=== PATIENT | female | born 1985 | race Caucasian/White ===

== ENCOUNTER 2018-05-24 19:38 | Emergency (ER) | payer SELFPAY ==
[~2018-05-24] VITALS: Ht 162.6 cm; Wt 104.3 kg
--- NOTE | 2018-05-24 19:41 | ED.ADGEN ---
Past History Past Surgical History: Other Past Surgical History Rt. foot, ankle and tib/fib. Adult General Chief Complaint Chief Complaint ".. I hurt my Rt. ankle... I twisted it about 2 weeks ago... and been thinking it may get better.. but it still hurts to walk.. it the same one I had surgical repair on 2 yrs ago... HPI HPI Patient is a 33 year old female who presents with above hx and complaints of edema and pain in right ankle and foot. Patient had extensive reconstructive surgery for multiple fractures of ankle and tibia 2 years ago. Distal neurovascular intact. Does have some mild swelling. Multiple scars. Patient has been ambulatory last 2 weeks. No history of fevers. No history of DVTs. No history of section and right leg. Patient recently moved into the area has not established primary care. Review of Systems Review of Systems Constitutional: Denies fever or chills [] Eyes: Denies change in visual acuity, redness, or eye pain [] HENT: Denies nasal congestion or sore throat [] Respiratory: Denies cough or shortness of breath [] Cardiovascular: No additional information not addressed in HPI [] GI: Denies abdominal pain, nausea, vomiting, bloody stools or diarrhea [] : Denies dysuria or hematuria [] Musculoskeletal: Denies back pain or joint pain []complaints of pain in right foot ankle and leg Integument: Denies rash or skin lesions [] Neurologic: Denies headache, focal weakness or sensory changes [] Endocrine: Denies polyuria or polydipsia [] All other systems were reviewed and found to be within normal limits, except as documented in this note. Family History Family History Noncontributory Current Medications Current Medications Current Medications Medications (Trade) Dose Ordered Sig/Jocelyn Start Time Stop Time Status Last Admin Dose Admin Hydrocodone Bitartrate/ Ibuprofen (Vicoprofen 7.5-200) 2 tab 1X ONCE 05/24/18 20:15 05/24/18 20:16 DC 05/24/18 21:10 2 TAB Allergies Allergies Allergies Coded Allergies Type Severity Reaction Last Updated Verified No Known Drug Allergies 05/24/18 No Physical Exam Physical Exam Constitutional: Mild to moderate distress, non-toxic appearance. [] HENT: Normocephalic, atraumatic, bilateral external ears normal, oropharynx moist, no oral exudates, nose normal. [] Eyes: PERRLA, EOMI, conjunctiva normal, no discharge. [] Neck: Normal range of motion, no tenderness, supple, no stridor. [] Cardiovascular:Heart rate regular rhythm, no murmur [] Lungs & Thorax: Bilateral breath sounds equal with scattered wheezes auscultation [] Abdomen: Bowel sounds normal, soft, no tenderness, no masses, no pulsatile masses. Scars Skin: Warm, dry, no erythema, no rash. [] Back: No tenderness, no CVA tenderness. [] Extremities: No tenderness, no cyanosis, no clubbing, ROM intact, no edema. [] Except Right foot, ankle and lower leg pain. Old surgical scars. No cording appreciated. Does have crepitation with range motion and foot squeeze. Refill is equal to left foot. Neurologic: Alert and oriented X 3, normal motor function, normal sensory function, no focal deficits noted. [] Psychologic: Affect anxious, judgement normal, mood normal. [] Current Patient Data Vital Signs Vital Signs Date Time Temp Pulse Resp B/P (MAP) Pulse Ox O2 Delivery O2 Flow Rate FiO2 05/24/18 21:05 104 18 128/93 (105) 97 Room Air 05/24/18 19:52 98.5 Lab Results Laboratory Tests Test 05/24/18 18:50 05/24/18 20:02 Urine Collection Type Unknown Urine Color Yellow Urine Clarity Clear Urine pH 6.0 Urine Specific [place] 1.020 Urine Protein Neg (NEG-TRACE) Urine Glucose (UA) Neg mg/dL (NEG) Urine Ketones (Stick) Neg mg/dL (NEG) Urine Blood Neg (NEG) Urine Nitrite Neg (NEG) Urine Bilirubin Neg (NEG) Urine Urobilinogen Dipstick 0.2 mg/dL (0.2 mg/dL) Urine Leukocyte Esterase Neg (NEG) Urine RBC Rare /HPF (0-2) Urine WBC Occ /HPF (0-4) Urine Squamous Epithelial Cells Few /LPF Urine Bacteria Mod /HPF (0-FEW) Urine Mucus Slight /LPF Urine Opiates Screen Neg (NEG) Urine Methadone Screen Neg (NEG) Urine Barbiturates Neg (NEG) Urine Phencyclidine Screen Neg (NEG) Urine Amphetamine/Methamphetamine Neg (NEG) Urine Benzodiazepines Screen Neg (NEG) Urine Cocaine Screen Neg (NEG) Urine Cannabinoids Screen Neg (NEG) Urine Ethyl Alcohol Pos (NEG) POC Urine HCG, Qualitative hcg negative (Negative) EKG EKG [] Radiology/Procedures Radiology/Procedures My interpretation of x-ray shows findings of old fractures with multiple screws and hardware. No obvious acute fracture appreciated no obvious acute dislocation.[] Course & Med Decision Making Course & Med Decision Making Pertinent Labs and Imaging studies reviewed. (See chart for details). Distal neurovascular intact after splinting. Ice, elevation, rest, and wear Brooks wrap and splint. Follow-up primary care. Follow-up orthopedics. Take Tylenol and ibuprofen for pain. For marked pain may take Vicoprofen up 4 times a day. [] Final Impression Final Impression 1. Ankle Sprain[] right 2. Right foot sprain 3. History of multiple plates and screws in right foot and ankle 4. Tobacco Use Dragon Disclaimer Dragon Disclaimer This electronic medical record was generated, in whole or in part, using a voice recognition dictation system. SILVINA LOVE MD May 24, 2018 19:41
[2018-05-24] MEDS ORDERED: HYDROcodon/IBUPROFEN 7.5/200MG 1 TAB TABLET PO ONE (20:15)
--- NOTE | 2018-05-24 20:17 | RAD ---
Three-view right ankle radiographs 05/24/2018 CLINICAL HISTORY: Right ankle twisting injury one week ago with severe pain and swelling. AP, lateral and oblique digital radiographs of the right ankle were obtained. The patient is post ORIF of old an healed fracture of the distal right fibula using a side plate and multiple bone screws. A large bone screw is seen extending across the distal diaphysis of the right fibula through the distal metaphysis of the right tibia. This is fractured in its midportion. The age of this fracture is indeterminate. No acute fracture or dislocation of the right ankle is seen. IMPRESSION: No acute fracture or dislocation of the right ankle is seen. Electronically signed by: Yoel Schneider MD (05/24/2018 8:14 PM) [facility]
[2018-05-24] MEDS ORDERED: HYDR-79 PO (20:24)
[2018-05-24 20:26] LABS: AMPHETAMINE/METHAMPHETAMINE NEG (NEG); BARBITURATES NEG (NEG); BENZODIAZEPINES NEG (NEG); CANNABINOIDS NEG (NEG); COCAINE NEG (NEG); METHADONE NEG (NEG); OPIATES NEG (NEG); PHENCYCLIDINE NEG (NEG)
[2018-05-24 20:31] LABS: BACTERIA,URINE MOD /HPF (0-FEW); BILIRUBIN,URINE NEG (NEG); CLARITY,URINE CLEAR; COLOR,URINE YELLOW; GLUCOSE,URINE NEG (NEG); NITRITE,URINE NEG (NEG); RBC,URINE RARE /HPF (0-2); SQUAMOUS EPITHELIAL CELL,UR FEW /LPF; UROBILINOGEN,URINE 0.2 mg/dL (0.2 mg/dL); WBC,URINE OCC /HPF (0-4)
[2018-05-24 21:05] VITALS: BP 128/93
--- NOTE | 2018-05-24 23:46 | RAD ---
AP and lateral right tibia and fibula radiographs 05/24/2018 CLINICAL HISTORY: Twisting injury to the right lower leg one week ago with severe pain. AP and lateral digital radiographs of the right tibia and fibula were obtained. A side plate and bone screws is seen transfixing a healed fracture of the distal right fibular diaphysis. No acute fracture or dislocation of the right tibia or fibula is seen. IMPRESSION: No fracture or dislocation of the right tibia or fibula is seen. Electronically signed by: Yoel Schneider MD (05/24/2018 11:42 PM) [facility]
--- NOTE | 2018-05-24 23:47 | RAD ---
Three-view right foot radiographs 05/24/2018 CLINICAL HISTORY: Right foot pain and swelling. Recent injury. AP, lateral and oblique digital radiographs of the right foot were obtained. No fracture or dislocation of the right foot is seen. A side plate and multiple bone screws is seen within the distal right fibula. IMPRESSION: No fracture or dislocation of the right foot is seen. Electronically signed by: Yoel Schneider MD (05/24/2018 11:43 PM) [facility]
== END 2018-05-24 21:11 | disposition home or self-care (01) ==
LOC: ER 19:38
DX: S93.401A Sprain of unspecified ligament of right ankle, initial encounter (principal); S93.601A Unspecified sprain of right foot, initial encounter; Z72.0 Tobacco use; Z98.890 Other specified postprocedural states; X50.1XXA Overexertion from prolonged static or awkward postures, initial encounter; Y93.89 Activity, other specified; Y92.89 Other specified places as the place of occurrence of the external cause; Y99.8 Other external cause status
CPT/HCPCS: 29515; 36415; 73590; 73610; 73630; 80307; 81001; 81025; 87086; 99285-25; G0479

== ENCOUNTER 2018-06-14 14:14 | Emergency (ER) | payer OTHER ==
[~2018-06-14] VITALS: Ht 162.6 cm; Wt 113.9 kg
[~2018-06-14 14:14] MED LIST: HYDR-79 PO
[2018-06-14 14:59] LABS: BASO % 1 % (0-3); EOS # 0.1 x10^3/uL (0.0-0.7); EOS % 1 % (0-3); HEMATOCRIT 37.6 % (36.0-47.0); HEMOGLOBIN 12.8 g/dL (12.0-15.5); LYMPH # 1.7 x10^3/uL (1.0-4.8); LYMPH % 27 % (24-48); MEAN CORPUSCULAR HEMOGLOBIN 32 pg (25-35); MEAN CORPUSCULAR HGB CONC 34 g/dL (31-37); MEAN CORPUSCULAR VOLUME 93 fL (79-100); MONO # 0.3 x10^3/uL (0.0-1.1); MONO % 6 % (0-9); NEUT # 4.1 x10^3uL (1.8-7.7); NEUT % 66 % (31-73); PLATELET COUNT 271 x10^3/uL (140-400); RED BLOOD COUNT 4.04 x10^6/uL (3.50-5.40); RED CELL DISTRIBUTION WIDTH 15.4 % (11.5-14.5); WHITE BLOOD COUNT 6.2 x10^3/uL (4.0-11.0)
[2018-06-14 15:10] LABS: ALBUMIN 3.2 g/dL (3.4-5.0); ALBUMIN/GLOBULIN RATIO 0.9 (1.0-1.7); CALCIUM 8.9 mg/dL (8.5-10.1); CREATININE 0.9 mg/dL (0.6-1.0); POTASSIUM 4.2 mmol/L (3.5-5.1); TOTAL BILIRUBIN 0.2 mg/dL (0.2-1.0); TOTAL PROTEIN 6.6 g/dL (6.4-8.2)
--- NOTE | 2018-06-14 15:12 | RAD ---
CT of the head without contrast, 06/14/2018: HISTORY: Fall, head and neck pain The ventricles are within normal limits in size. There is no shift of the midline structures. There is no evidence of acute intracranial hemorrhage or mass effect. IMPRESSION: No acute intracranial abnormality is detected. CT of the cervical spine without contrast, 06/14/2018: Noncontrast scans were obtained with multiplanar reconstructions produced. No fracture or dislocation is identified. The central spinal canal is well maintained. The paraspinous soft tissues are unremarkable. IMPRESSION: No acute cervical spine abnormality is detected. Electronically signed by: Isac Melendez MD (06/14/2018 3:09 PM) [facility]
--- NOTE | 2018-06-14 15:13 | RAD ---
Left knee, 3 views, 06/14/2018: HISTORY: Fall, knee pain No fracture or dislocation is identified. No joint effusion is evident. IMPRESSION: No acute left knee abnormality is detected. Electronically signed by: Isac Melendez MD (06/14/2018 3:10 PM) [facility]
[2018-06-14] MEDS ORDERED: PANTOPRAZOLE IV 40 MG VIAL. ONE (15:16)
[2018-06-14] MEDS ORDERED: ONDANSETRON PF 4 MG/2 ML VIAL. ONE (15:16)
[2018-06-14 15:27] LABS: BILIRUBIN,URINE NEG (NEG); CLARITY,URINE TURBID; COLOR,URINE YELLOW; GLUCOSE,URINE NEG (NEG)
--- NOTE | 2018-06-14 15:27 | PHYS DOC ---
Past History Past Medical History: Anxiety, Depression, Hypertension, Other Past Surgical History: , Tubal ligation Alcohol Use: Occasionally Drug Use: None Adult General Chief Complaint Chief Complaint: NAUSEA/VOMITING/DIARRHEA HPI HPI Patient is a 33-year-old female who presents after reportedly sustaining a head injury. Patient states that she had been at a bathroom in a park and had fallen , hitting her head. She states that she had lost consciousness for an unknown period of time. She states that she has pain in her head and her neck and she rates that at an 8 out of 10. She does admit some nausea but has had no vomiting. Patient states that she's feeling a little bit foggy ever since the injury. Review of Systems Review of Systems Constitutional: Denies fever or chills [] Eyes: Denies change in visual acuity, redness, or eye pain [] Respiratory: Denies cough or shortness of breath [] Cardiovascular: Denies chest pain[] GI: Denies abdominal pain. Complains of nausea without vomiting [] Musculoskeletal: Complains of neck pain and left knee pain[] Integument: Denies rash or skin lesions [] Neurologic: Complains of headache[] All other systems were reviewed and found to be within normal limits, except as documented in this note. Current Medications Current Medications Current Medications Medications (Trade) Dose Ordered Sig/Jocelyn Start Time Stop Time Status Last Admin Dose Admin Ondansetron HCl (Zofran) 4 mg STK-MED ONCE 06/14/18 15:16 06/14/18 15:17 DC Pantoprazole Sodium (Protonix Vial) 40 mg STK-MED ONCE 06/14/18 15:16 06/14/18 15:17 DC Allergies Allergies Allergies Coded Allergies Type Severity Reaction Last Updated Verified No Known Drug Allergies 05/24/18 No Physical Exam Physical Exam Constitutional: Well developed, well nourished, no acute distress, non-toxic appearance. [] HENT: Normocephalic, atraumatic, bilateral external ears normal, oropharynx moist, no oral exudates, nose normal. [] Eyes: PERRLA, EOMI, conjunctiva normal, no discharge. [] Neck: Normal range of motion, supple, supple, no stridor. [] Cardiovascular:Heart rate regular rhythm, no murmur [] Lungs & Thorax: Bilateral breath sounds clear to auscultation [] Abdomen: Bowel sounds normal, soft, no tenderness. [] Skin: Warm, dry, no erythema, no rash. [] Extremities: Patient reports to tenderness to palpation around the medial lateral joint line of her left knee. There is no soft tissue swelling or deformity. There is small area of ecchymosis noted.[] Neurologic: Alert and oriented X 3, normal motor function, normal sensory function, no focal deficits noted. [] Current Patient Data Vital Signs Vital Signs Date Time Temp Pulse Resp B/P (MAP) Pulse Ox O2 Delivery O2 Flow Rate FiO2 06/14/18 14:17 98.7 105 16 100 Room Air Lab Results Laboratory Tests Test 06/14/18 14:42 White Blood Count 6.2 x10^3/uL (4.0-11.0) Red Blood Count 4.04 x10^6/uL (3.50-5.40) Hemoglobin 12.8 g/dL (12.0-15.5) Hematocrit 37.6 % (36.0-47.0) Mean Corpuscular Volume 93 fL (79-100) Mean Corpuscular Hemoglobin 32 pg (25-35) Mean Corpuscular Hemoglobin Concent 34 g/dL (31-37) Red Cell Distribution Width 15.4 % (11.5-14.5) H Platelet Count 271 x10^3/uL (140-400) Neutrophils (%) (Auto) 66 % (31-73) Lymphocytes (%) (Auto) 27 % (24-48) Monocytes (%) (Auto) 6 % (0-9) Eosinophils (%) (Auto) 1 % (0-3) Basophils (%) (Auto) 1 % (0-3) Neutrophils # (Auto) 4.1 x10^3uL (1.8-7.7) Lymphocytes # (Auto) 1.7 x10^3/uL (1.0-4.8) Monocytes # (Auto) 0.3 x10^3/uL (0.0-1.1) Eosinophils # (Auto) 0.1 x10^3/uL (0.0-0.7) Basophils # (Auto) 0.0 x10^3/uL (0.0-0.2) Sodium Level 140 mmol/L (136-145) Potassium Level 4.2 mmol/L (3.5-5.1) Chloride Level 107 mmol/L (98-107) Carbon Dioxide Level 28 mmol/L (21-32) Anion Gap 5 (6-14) L Blood Urea Nitrogen 6 mg/dL (7-20) L Creatinine 0.9 mg/dL (0.6-1.0) Estimated GFR (Cockcroft-Gault) 73.0 BUN/Creatinine Ratio 7 (6-20) Glucose Level 94 mg/dL (70-99) Calcium Level 8.9 mg/dL (8.5-10.1) Total Bilirubin 0.2 mg/dL (0.2-1.0) Aspartate Amino Transferase (AST) 14 U/L (15-37) L Alanine Aminotransferase (ALT) 25 U/L (14-59) Alkaline Phosphatase 68 U/L (46-116) Total Protein 6.6 g/dL (6.4-8.2) Albumin 3.2 g/dL (3.4-5.0) L Albumin/Globulin Ratio 0.9 (1.0-1.7) L EKG EKG [] Radiology/Procedures Radiology/Procedures [] Impressions: CT head and cervical spine demonstrate no acute abnormalities. X-ray of the left knee demonstrates no acute bony abnormality. Course & Med Decision Making Course & Med Decision Making Pertinent Labs and Imaging studies reviewed. (See chart for details) [] Dragon Disclaimer Dragon Disclaimer This electronic medical record was generated, in whole or in part, using a voice recognition dictation system. Departure Departure: Impression: Primary Impression: Closed head injury Additional Impressions: Cervical strain Contusion of left knee Disposition: 01 HOME, SELF-CARE Condition: STABLE Referrals: PCP,NO (PCP) Patient Instructions: Cervical Sprain, Contusion, Head Injury, Adult Additional Instructions: Take prescribed medication as directed and follow-up with your primary care provider in the next few days. Scripts Naproxen (NAPROSYN) 500 Mg Tablet 1 TAB PO BID PRN for PAIN, #20 TAB Prov: ENRIQUE HERNANDEZ Jr. DO 06/14/18 Cyclobenzaprine Hcl (CYCLOBENZAPRINE HCL) 10 Mg Tablet 1 TAB PO TID PRN for MUSCLE SPASMS, #15 TAB Prov: ENRIQUE HERNANDEZ Jr. DO 06/14/18 Problem Qualifiers Primary Impression: Closed head injury Encounter type: initial encounter Qualified Codes: S09.90XA - Unspecified injury of head, initial encounter Additional Impressions: Cervical strain Encounter type: initial encounter Qualified Codes: S16.1XXA - Strain of muscle, fascia and tendon at neck level, initial encounter Contusion of left knee Encounter type: initial encounter Qualified Codes: S80.02XA - Contusion of left knee, initial encounter ENRIQUE HERNANDEZ Jr. DO Jun 14, 2018 15:27
[2018-06-14 15:28] LABS: AMORPHOUS SEDIMENT,UR PRESENT /HPF; BACTERIA,URINE FEW /HPF (0-FEW); NITRITE,URINE NEG (NEG); RBC,URINE OCC /HPF (0-2); SQUAMOUS EPITHELIAL CELL,UR FEW /LPF; UROBILINOGEN,URINE 0.2 mg/dL (0.2 mg/dL)
[2018-06-14 15:30] VITALS: BP 156/97
[2018-06-14] MEDS ORDERED: NAPR-683 PO (15:35)
[2018-06-14] MEDS ORDERED: CYCL-331 PO (15:35)
== END 2018-06-14 15:41 | disposition home or self-care (01) ==
LOC: ER 14:14
DX: S06.9X9A Unspecified intracranial injury with loss of consciousness of unspecified duration, initial encounter (principal); S16.1XXA Strain of muscle, fascia and tendon at neck level, initial encounter; S80.02XA Contusion of left knee, initial encounter; R11.0 Nausea; I10 Essential (primary) hypertension; W18.09XA Striking against other object with subsequent fall, initial encounter; Y93.89 Activity, other specified; Y92.830 Public park as the place of occurrence of the external cause; Y99.8 Other external cause status
CPT/HCPCS: 36415; 70450; 72125; 73562; 80053; 81001; 85025; 99285

== ENCOUNTER 2019-04-01 17:20 | Emergency (ER) | payer OTHER ==
[~2019-04-01] VITALS: Ht 162.6 cm; Wt 113.9 kg
[~2019-04-01 17:20] MED LIST changes: +CYCL-331 PO; +HYDR-1179 PO; -HYDR-79 PO; +NAPR-683 PO
[2019-04-01 17:30] VITALS: BP 151/108
[2019-04-01] MEDS ORDERED: IV NORMAL SALINE 1,000ML 1,000 ML IV ONE (17:30)
[2019-04-01 17:40] LABS: BASO % 0 % (0-3); EOS % 0 % (0-3); HEMATOCRIT 44.8 % (36.0-47.0); HEMOGLOBIN 15.3 g/dL (12.0-15.5); LYMPH # 1.5 x10^3/uL (1.0-4.8); LYMPH % 18 % (24-48); MEAN CORPUSCULAR HEMOGLOBIN 34 pg (25-35); MEAN CORPUSCULAR HGB CONC 34 g/dL (31-37); MEAN CORPUSCULAR VOLUME 100 fL (79-100); MONO # 0.3 x10^3/uL (0.0-1.1); MONO % 3 % (0-9); NEUT # 6.9 x10^3uL (1.8-7.7); NEUT % 79 % (31-73); PLATELET COUNT 249 x10^3/uL (140-400); RED CELL DISTRIBUTION WIDTH 16.6 % (11.5-14.5); WHITE BLOOD COUNT 8.8 x10^3/uL (4.0-11.0)
[2019-04-01] MEDS ORDERED: ONDANSETRON PF 4 MG/2 ML VIAL. IV ONE (17:45)
[2019-04-01 17:51] LABS: ALBUMIN 4.1 g/dL (3.4-5.0); ALBUMIN/GLOBULIN RATIO 1.2 (1.0-1.7); CALCIUM 8.5 mg/dL (8.5-10.1); GFR 64.7; POTASSIUM 3.8 mmol/L (3.5-5.1); TOTAL BILIRUBIN 0.8 mg/dL (0.2-1.0); TOTAL PROTEIN 7.5 g/dL (6.4-8.2)
--- NOTE | 2019-04-01 17:58 | PHYS DOC ---
Past History Past Medical History: Anxiety, Depression, Hypertension, Other (ERICA ZEPEDA DO) Past Surgical History: , Tubal ligation (ERICA ZEPEDA DO) Alcohol Use: Heavy Drug Use: None (ERICA ZEPEDA DO) Adult General Chief Complaint Chief Complaint: NAUSEA/VOMITING/DIARRHEA HPI HPI 33-year-old female presents with vomiting since about 2 AM. His been unable to keep down any liquids or solids. She lost count, anytime she is vomiting. She is also had some watery diarrhea. The patient is a heavy alcohol drinker. She did some binge drinking 2 days ago. Her significant other that accompanies her states that she drank some alcohol today around noon. Neither one of them can remember if she was able to keep it down. Patient is unsure about fever, but admits to chills. No known sick contacts. She has diffuse abdominal pain that developed after the vomiting started. (ERICA ZEPEDA DO) Review of Systems Review of Systems Constitutional: Denies fever or chills [] Eyes: Denies change in visual acuity, redness, or eye pain [] HENT: Denies nasal congestion or sore throat [] Respiratory: Denies cough or shortness of breath [] Cardiovascular: No additional information not addressed in HPI [] GI: Diffuse abdominal pain, nausea, vomiting. Denies bloody stools or diarrhea [] : Denies dysuria or hematuria [] Musculoskeletal: Denies back pain or joint pain [] Integument: Denies rash or skin lesions [] Neurologic: Denies headache, focal weakness or sensory changes [] Endocrine: Denies polyuria or polydipsia [] All other systems were reviewed and found to be within normal limits, except as documented in this note. (ERICA ZEPEDA DO) Current Medications Current Medications Current Medications Medications (Trade) Dose Ordered Sig/Jocelyn Start Time Stop Time Status Last Admin Dose Admin Ondansetron HCl (Zofran) 4 mg 1X ONCE 04/01/19 17:45 04/01/19 17:46 DC 04/01/19 17:37 4 MG Sodium Chloride 1,000 ml @ 1,000 mls/hr 1X ONCE 04/01/19 17:30 04/01/19 18:29 04/01/19 17:37 1,000 MLS/HR (ERICA ZEPEDA DO) Allergies Allergies Allergies Coded Allergies Type Severity Reaction Last Updated Verified No Known Drug Allergies 05/24/18 No (ERICA ZEPEDA DO) Physical Exam Physical Exam Constitutional: Well developed, morbidly obese, well nourished, mild acute distress. [] HENT: Normocephalic, atraumatic, bilateral external ears normal, oropharynx moist, no oral exudates, nose normal. [] Eyes: PERRLA, EOMI, conjunctiva normal, no discharge. [] Neck: Normal range of motion, no tenderness, supple, no stridor. [] Cardiovascular:Heart rate regular rhythm, no murmur [] Lungs & Thorax: Bilateral breath sounds clear to auscultation [] Abdomen: Bowel sounds normal, soft, mild epigastric and LLQ tenderness, no masses, no pulsatile masses. [] Skin: Warm, dry, no erythema, no rash. [] Back: No tenderness, no CVA tenderness. [] Extremities: No tenderness, no cyanosis, no clubbing, ROM intact, no edema. [] Neurologic: Alert and oriented X 3, normal motor function, normal sensory function, no focal deficits noted. [] Psychologic: Affect normal, judgement normal, mood anxious. [] (ERICA ZEPEDA DO) Current Patient Data Vital Signs Vital Signs Date Time Temp Pulse Resp B/P (MAP) Pulse Ox O2 Delivery O2 Flow Rate FiO2 04/01/19 17:30 98.0 126 18 96 Room Air Lab Results Laboratory Tests Test 04/01/19 17:24 White Blood Count 8.8 x10^3/uL (4.0-11.0) Red Blood Count 4.50 x10^6/uL (3.50-5.40) Hemoglobin 15.3 g/dL (12.0-15.5) Hematocrit 44.8 % (36.0-47.0) Mean Corpuscular Volume 100 fL (79-100) Mean Corpuscular Hemoglobin 34 pg (25-35) Mean Corpuscular Hemoglobin Concent 34 g/dL (31-37) Red Cell Distribution Width 16.6 % (11.5-14.5) H Platelet Count 249 x10^3/uL (140-400) Neutrophils (%) (Auto) 79 % (31-73) H Lymphocytes (%) (Auto) 18 % (24-48) L Monocytes (%) (Auto) 3 % (0-9) Eosinophils (%) (Auto) 0 % (0-3) Basophils (%) (Auto) 0 % (0-3) Neutrophils # (Auto) 6.9 x10^3uL (1.8-7.7) Lymphocytes # (Auto) 1.5 x10^3/uL (1.0-4.8) Monocytes # (Auto) 0.3 x10^3/uL (0.0-1.1) Eosinophils # (Auto) 0.0 x10^3/uL (0.0-0.7) Basophils # (Auto) 0.0 x10^3/uL (0.0-0.2) (ERICA ZEPEDA DO) EKG EKG [] (ERICA ZEPEDA DO) Radiology/Procedures Radiology/Procedures [] (ERICA ZEPEDA DO) Radiology/[place] [address] IMAGING REPORT Signed PATIENT: RAZ MANNING V ACCOUNT: [id number] : 1985 LOCATION: ER AGE: 33 SEX: F EXAM STATUS: REG ER ORD. PHYSICIAN: ERICA ZEPEDA DO REASON: Omni 300,75ml IV. LLQ pain, hx tubal ligation PROCEDURE: CT ABD PELV W/ IV CONTRST ONLY PQRS Compliance Statement: One or more of the following individualized dose reduction techniques were utilized for this examination: 1. Automated exposure control 2. Adjustment of the mA and/or kV according to patient size 3. Use of iterative reconstruction technique CT abdomen/pelvis with contrast 04/01/2019 5:54 PM INDICATION: Left lower quadrant pain with history of tubal ligation. COMPARISON: None available TECHNIQUE: Multiple axial CT images of the abdomen and pelvis were obtained after the intravenous administration of 75 mL Omnipaque 300. Coronal and sagittal reformats are provided. FINDINGS: Lung bases are clear. Heart size within normal limits. Hypoattenuation of the hepatic parenchyma is suggestive of hepatic steatosis. There is more focal fatty infiltration along the fissure of the ligamentum teres. Portal venous system is patent. Spleen, bilateral adrenal glands, pancreas and gallbladder are normal in appearance. The abdominal aorta is normal in course and caliber. There are no pathologically enlarged lymph nodes in the abdomen and pelvis. There is no abdominal free fluid. There is no free intraperitoneal air. Small and large bowel are normal in caliber. There is no evidence for bowel obstruction. There are no pericolonic inflammatory changes. A normal, nondilated appendix is visualized without adjacent inflammatory changes. The kidneys enhance symmetrically. There is no suspicious renal mass. There is no hydronephrosis. There are no suspected calculi within the kidneys, ureters or urinary bladder. Urinary bladder is within normal limits given degree of distention. Uterus and adnexa are normal by CT. Small fat-containing indirect right inguinal hernia. No suspicious osseous abnormality is identified. IMPRESSION: 1. Moderate diffuse hepatic steatosis. 2. Appendix is normal in appearance. No bowel obstruction or inflammation. 3. Small fat-containing indirect right inguinal hernia. Electronically signed by: Jaquelin Goins MD (04/01/2019 6:54 PM) [facility] DICTATED AND SIGNED BY: JAQUELIN GOINS MD DATE: 04/01/19 321 CC: ERICA ZEPEDA DO; SILVINA LOPEZ MD; PCP,NO ~ (SILVINA LOPEZ MD) Course & Med Decision Making Course & Med Decision Making Pertinent Labs and Imaging studies reviewed. (See chart for details) The patient was given 1 L normal saline and 4 mg of Zofran IV. Her workup is pending. I'm signing the patient out to Dr. Lopez at 1800. He will follow-up on her workup and determine final disposition. [] (ERICA ZEPEDA DO) Course & Med Decision Making Impression: 1. Acute Gastroenteritis 2. Dehydration 3. Mild Elevation of AST 87 4. UTI 5. Gastritis Pt. to stay on clear fluid diet only. No solid or milk products.. Must allow bowel rest. Push fluids. Follow up urine cultures.. Follow up with primary. Take Zofran for active nausea and vomiting. tylenol and Ibuprofen for pain. Zantac 150 mg bid. Keflex 500 three times a day. Re-exam if no improvement. (SILVINA LOPEZ MD) Dragon Disclaimer Dragon Disclaimer This electronic medical record was generated, in whole or in part, using a voice recognition dictation system. (ERICA ZEPEDA DO) Departure Departure: Disposition: 01 HOME/RESIDENCE PRIOR TO ADM Condition: STABLE Referrals: PCP,NO (PCP) Scripts Ranitidine Hcl (ZANTAC) 150 Mg Tablet 150 MG PO BID for gerd, gastritis for 60 Days, #120 TAB Prov: SILVINA LOPEZ MD 04/01/19 Cephalexin (KEFLEX) 500 Mg Capsule 500 MG PO TID for UTI for 7 Days, BOTTLE Prov: SILVINA LOPEZ MD 04/01/19 Ondansetron Hcl (ZOFRAN) 8 Mg Tablet 8 MG PO QIDPRN PRN for nv, #30 BOTTLE Prov: SILVINA LOPEZ MD 04/01/19 Dragon Disclaimer This chart was dictated in whole or in part using Voice Recognition software in a busy, high-work load, and often noisy Emergency Department environment. It may contain unintended and wholly unrecognized errors or omissions. (SILVINA LOPEZ MD) ERICA ZEPEDA DO Apr 01, 2019 17:57 SILVINA LOPEZ MD Apr 02, 2019 05:01
[2019-04-01] MEDS ORDERED: IOHEXOL 300 MG/ML 75 ML VIAL. IV ONE (18:15)
[2019-04-01 18:39] LABS: BACTERIA,URINE MOD /HPF (0-FEW); BILIRUBIN,URINE NEG (NEG); CLARITY,URINE HAZY; COLOR,URINE YELLOW; GLUCOSE,URINE NEG (NEG); NITRITE,URINE NEG (NEG); SQUAMOUS EPITHELIAL CELL,UR MANY /LPF; UROBILINOGEN,URINE 0.2 mg/dL (0.2 mg/dL)
--- NOTE | 2019-04-01 18:57 | RAD ---
PQRS Compliance Statement: One or more of the following individualized dose reduction techniques were utilized for this examination: 1. Automated exposure control 2. Adjustment of the mA and/or kV according to patient size 3. Use of iterative reconstruction technique CT abdomen/pelvis with contrast 04/01/2019 5:54 PM INDICATION: Left lower quadrant pain with history of tubal ligation. COMPARISON: None available TECHNIQUE: Multiple axial CT images of the abdomen and pelvis were obtained after the intravenous administration of 75 mL Omnipaque 300. Coronal and sagittal reformats are provided. FINDINGS: Lung bases are clear. Heart size within normal limits. Hypoattenuation of the hepatic parenchyma is suggestive of hepatic steatosis. There is more focal fatty infiltration along the fissure of the ligamentum teres. Portal venous system is patent. Spleen, bilateral adrenal glands, pancreas and gallbladder are normal in appearance. The abdominal aorta is normal in course and caliber. There are no pathologically enlarged lymph nodes in the abdomen and pelvis. There is no abdominal free fluid. There is no free intraperitoneal air. Small and large bowel are normal in caliber. There is no evidence for bowel obstruction. There are no pericolonic inflammatory changes. A normal, nondilated appendix is visualized without adjacent inflammatory changes. The kidneys enhance symmetrically. There is no suspicious renal mass. There is no hydronephrosis. There are no suspected calculi within the kidneys, ureters or urinary bladder. Urinary bladder is within normal limits given degree of distention. Uterus and adnexa are normal by CT. Small fat-containing indirect right inguinal hernia. No suspicious osseous abnormality is identified. IMPRESSION: 1. Moderate diffuse hepatic steatosis. 2. Appendix is normal in appearance. No bowel obstruction or inflammation. 3. Small fat-containing indirect right inguinal hernia. Electronically signed by: Clarita Burton MD (04/01/2019 6:54 PM) [facility]
[2019-04-01] MEDS ORDERED: diphenhydrAMINE 50 MG/ML VIAL IVP ONE (20:00)
[2019-04-01] MEDS ORDERED: PROCHLORPERAZINE 10 MG/2 ML VIAL. IV ONE (20:00)
[2019-04-01] MEDS ORDERED: ONDA8TAB9 PO (20:00)
[2019-04-01] MEDS ORDERED: SUCRALFATE 1 GM TABLET. PO ONE (20:00)
[2019-04-01] MEDS ORDERED: RANI-376 PO (20:00)
[2019-04-01] MEDS ORDERED: CEPH-264 PO (20:00)
[2019-04-01] MEDS ORDERED: FAMOTIDINE 20 MG/2 ML VIAL IVP ONE (20:00)
[2019-04-01] MEDS ORDERED: MORPHINE SULFATE 10 MG/ML SYRINGE. SQ ONE (20:00)
[2019-04-01] MEDS ORDERED: IV NORMAL SALINE 50ML 50 ML ONE (20:02)
[2019-04-01] MEDS ORDERED: cefTRIAXone SODIUM 1 GM VIAL ONE (20:03)
== END 2019-04-01 21:00 | disposition home or self-care (01) ==
LOC: ER 17:20
DX: K52.9 Noninfective gastroenteritis and colitis, unspecified (principal); E86.0 Dehydration; N39.0 Urinary tract infection, site not specified; K29.70 Gastritis, unspecified, without bleeding; R94.5 Abnormal results of liver function studies; I10 Essential (primary) hypertension; F10.20 Alcohol dependence, uncomplicated; Y90.9 Presence of alcohol in blood, level not specified
CPT/HCPCS: 36415; 74177; 80053; 81001; 81025; 83690; 85025; 87086; 96361; 96365; 96372; 96375; 99285; J0696; J0780; J1200; J2270; J2405; J3490; Q9967; J7030